=== PATIENT | male | born 1970 | race Caucasian/White ===

== ENCOUNTER 2022-06-27 10:55 | Emergency (ER) | payer OTHER, SELFPAY ==
[2022-06-27 11:01] VITALS: BP 161/117; PULSE 67; RESP 16; TEMP 36.4; O2SAT 98
--- NOTE | 2022-06-27 11:39 | ED.GENADULT ---
HPI - General Adult General Stated complaint: high blood pressure Source: patient Mode of arrival: ambulatory Limitations: no limitations History of Present Illness HPI narrative: Patient presents for evaluation of elevated blood pressure. He has history of hypertension for which he takes lisinopril 5 mg daily, Norvasc 10 mg daily, hydralazine 100 mg t.i.d. and Coreg 6.25 mg p.o. b.i.d.. His blood pressure normally is in the 120's/80's. This week his pressures have been in the 140s over 80s to 90s. Today he checked his blood pressure at home and had several readings of 170s/110's-130's. He denies any chest pain, shortness of breath, headache, lateralizing deficits. He denies any symptoms associated with elevated blood pressure. He has a history of a CVA approximately 1 year ago. He contacted his primary care provider yesterday regarding his elevated pressures and has an appointment scheduled for 07/09/2022. He notes some increase in stress as he returned to work in the past few weeks. Related Data Home Medications Medication Instructions Recorded Confirmed amlodipine 10 mg tablet 10 mg PO DAILY 06/27/22 06/27/22 atorvastatin 40 mg tablet 40 mg PO DAILY 06/27/22 06/27/22 carvedilol 6.25 mg tablet 6.25 mg PO BID 06/27/22 06/27/22 fluoxetine 20 mg capsule 20 mg PO DAILY 06/27/22 06/27/22 hydralazine 100 mg tablet 100 mg PO TID 06/27/22 06/27/22 Allergies Allergy/AdvReac Type Severity Reaction Status Date / Time No Known Allergies Allergy Unverified 03/08/17 18:32 Review of Systems Review of Systems: CONSTITUTIONAL: Denies fever, chills, or sweats. EYES: Denies visual changes, redness, or discharge. ENT: Denies rhinorrhea, congestion, sore throat, or otalgia. CARDIOVASCULAR: Denies chest pain, palpitations, or edema. RESPIRATORY: Denies cough or dyspnea. GASTROINTESTINAL: Denies abdominal pain, nausea, vomiting, or diarrhea. GENITOURINARY: Denies dysuria or hematuria. SKIN: Denies rash or itching. MUSCULOSKELETAL: Denies back pain, joint pain, or myalgia. NEUROLOGIC: Denies headache, numbness, dizziness, or weakness. PSYCHIATRIC: Denies anxiety or depression. [facility] Past Medical History Medical History CVA (cerebral vascular accident) Hyperlipidemia Hypertension Surgical History Surgical History No pertinent past surgical history Family History Family History (Reviewed 06/27/22 @ 11:44 by Carlton Salmon [facility], ) Mother Family history non-contributory Social History Social History (Reviewed 06/27/22 @ 11:44 by Carlton Salmon [facility], ) Substance use: never Gender identity (if verbalized by the patient): Male Sexual Orientation (if Verbalized by the Patient): Straight or Heterosexual Spiritual care concerns: No Exam Narrative: GENERAL: Well-appearing, well-nourished, and in no acute distress. HEAD: Normocephalic, atraumatic. EYES: PERRLA and EOMI. ENT: Nares clear, no rhinorrhea or epistaxis. Mucous membranes moist. Oropharynx without tonsillar hypertrophy exudate or other lesions. Bilateral TMs pearly maciel nonbulging NECK: Supple. No adenopathy or masses. No carotid bruits or JVD CHEST: Clear to auscultation. No respiratory distress. No wheezes rales or rhonchi HEART: Regular rate and rhythm. No murmur heard. Normal peripheral pulses. ABDOMEN: Soft, nontender, nondistended, normal active bowel sounds. EXTREMITIES: Normal range of motion. No edema. SKIN: Warm, dry, no rash. NEURO: No focal deficits. Alert and oriented x3. PSYCH: Normal mood and affect. Course Course Emergency Course: This is a 51-year-old male who presented for evaluation of elevated blood pressure readings. He is asymptomatic. He has an appointment scheduled for 07/09/2022, which she was advised to keep. Will increase his lisinopril from 5 mg daily to 20 mg daily. He should continue with
== END 2022-06-27 11:35 | disposition home or self-care (01) ==
PROVIDERS: Emergency Provider Nurse Practitioner; PCP Family Medicine
DX: I10 Essential (primary) hypertension (principal); E78.5 Hyperlipidemia, unspecified; Z86.73 Personal history of transient ischemic attack (TIA), and cerebral infarction without residual deficits
CPT/HCPCS: 99203; G0463

== ENCOUNTER 2022-09-13 11:51 | Emergency (ER) | payer OTHER, SELFPAY ==
[2022-09-13 12:01] VITALS: BP 118/73; PULSE 88; RESP 16; TEMP 37.1; O2SAT 96
--- NOTE | 2022-09-13 12:59 | ED.GENADULT ---
HPI - General Adult General Chief complaint: Upper Respiratory Infection Stated complaint: cold/flu Source: patient Mode of arrival: ambulatory Limitations: no limitations History of Present Illness HPI narrative: Patient presents for evaluation of sick symptoms for last 4 days. Symptoms include sinus congestion, mucopurulent discharge from the nares, sore throat and fever. His currently has similar symptoms. He denies any nausea or diarrhea. He has experienced some vomiting secondary to postnasal drainage. He also reports a cough without any shortness of breath or chest pain. He has not taken any medication to assist with the symptoms. He does not smoke. He has had COVID in the past. Related Data Home Medications Medication Instructions Recorded Confirmed amlodipine 10 mg tablet 10 mg PO DAILY 06/27/22 06/27/22 atorvastatin 40 mg tablet 40 mg PO DAILY 06/27/22 06/27/22 carvedilol 6.25 mg tablet 6.25 mg PO BID 06/27/22 06/27/22 fluoxetine 20 mg capsule 20 mg PO DAILY 06/27/22 06/27/22 hydralazine 100 mg tablet 100 mg PO TID 06/27/22 06/27/22 Allergies Allergy/AdvReac Type Severity Reaction Status Date / Time No Known Allergies Allergy Unverified 03/08/17 18:32 Review of Systems Review of Systems: CONSTITUTIONAL: Reports fever. Denies chills or sweats. EYES: Denies visual changes, redness, or discharge. ENT: Reports sinus congestion mucopurulent discharge from the nares. Reports sore throat. Denies otalgia. CARDIOVASCULAR: Denies chest pain, palpitations, or edema. RESPIRATORY: Reports cough. Denies shortness of breath. GASTROINTESTINAL: Denies abdominal pain, nausea, vomiting, or diarrhea. GENITOURINARY: Denies dysuria or hematuria. SKIN: Denies rash or itching. MUSCULOSKELETAL: Denies back pain, joint pain, or myalgia. NEUROLOGIC: Denies headache, numbness, dizziness, or weakness. PSYCHIATRIC: Denies anxiety or depression. [facility] Past Medical History Medical History CVA (cerebral vascular accident) Hyperlipidemia Hypertension Surgical History Surgical History No pertinent past surgical history Family History Family History Mother Family history non-contributory Social History Social History Substance use: never Living arrangements: with family Gender identity (if verbalized by the patient): Male Sexual Orientation (if Verbalized by the Patient): Straight or Heterosexual Spiritual care concerns: No Exam Narrative: GENERAL: Well-appearing, well-nourished, and in no acute distress. HEAD: Normocephalic, atraumatic. EYES: PERRLA and EOMI. ENT: Nares clear, no rhinorrhea or epistaxis. Mucous membranes moist. Oropharynx without tonsillar hypertrophy exudate or other lesions. Right tympanic membrane erythema. NECK: Supple. No adenopathy or masses. No carotid bruits or JVD CHEST: Clear to auscultation. No respiratory distress. No wheezes rales or rhonchi HEART: Regular rate and rhythm. No murmur heard. Normal peripheral pulses. ABDOMEN: Soft, nontender, nondistended, normal active bowel sounds. EXTREMITIES: Normal range of motion. No edema. SKIN: Warm, dry, no rash. NEURO: No focal deficits. Alert and oriented x3. PSYCH: Normal mood and affect. Course Course Emergency Course: This is a 51-year-old male who presented for evaluation of sick symptoms. I did offer to check a chest x-ray, which she declined. He does have evidence of bacterial sinusitis based on nature of discharge and fever. Will discharge with Augmentin. Follow up with primary provider. Go to the ER for worsening symptoms. Patient in agreement with plan of care. Level of Care: Express Care Visit Vital Signs Vital signs: Vital Signs Temperature 37.1 C 09/13/22 12:0
== END 2022-09-13 13:07 | disposition home or self-care (01) ==
PROVIDERS: Emergency Provider Nurse Practitioner; PCP Family Medicine
DX: J32.9 Chronic sinusitis, unspecified (principal); B96.89 Other specified bacterial agents as the cause of diseases classified elsewhere; E78.5 Hyperlipidemia, unspecified; I10 Essential (primary) hypertension; Z86.73 Personal history of transient ischemic attack (TIA), and cerebral infarction without residual deficits
CPT/HCPCS: 99213; G0463

== ENCOUNTER 2023-04-22 15:11 | Emergency (ER) | payer BC, SELFPAY ==
[2023-04-22 15:20] VITALS: BP 130/85; PULSE 79; RESP 18; TEMP 36.7; O2SAT 98
--- NOTE | 2023-04-22 15:37 | ED.URI ---
HPI - URI/Sore Throat General Chief Complaint: Upper Respiratory Infection Stated Complaint: Sore Throat Time Seen by Provider: 04/22/23 15:30 Source: patient Mode of arrival: ambulatory Limitations: no limitations History of Present Illness HPI Narrative: Steven is a 52-year-old male patient presenting to the clinic today with complaints of sore throat and sinus congestion since last night. He reports he thinks he may have a sinus infection. Is having a lot of drainage going of the back was throat. MD elicited complaint: sore throat and nasal congestion Related Data Home Medications Medication Instructions Recorded Confirmed amlodipine 10 mg tablet 10 mg PO DAILY 06/27/22 04/22/23 atorvastatin 40 mg tablet 40 mg PO DAILY 06/27/22 04/22/23 carvedilol 6.25 mg tablet 6.25 mg PO BID 06/27/22 04/22/23 fluoxetine 20 mg capsule 20 mg PO DAILY 06/27/22 04/22/23 hydralazine 100 mg tablet 100 mg PO TID 06/27/22 04/22/23 lisinopril 5 mg tablet 5 mg PO DAILY 04/22/23 04/22/23 Allergies Allergy/AdvReac Type Severity Reaction Status Date / Time No Known Allergies Allergy Unverified 04/22/23 15:31 Review of Systems Review of Systems: Pertinent positives per HPI. Patient denies any fever, chills, rash, headache, visual changes, dizziness, shortness of breath, chest pain, palpitations, nausea, vomiting, diarrhea, constipation, abdominal pain, or any urinary issues. PMFSH Past Medical History Medical History CVA (cerebral vascular accident) Hyperlipidemia Hypertension Surgical History Surgical History No pertinent past surgical history Family History Family History Mother Family history non-contributory Social History Social History Substance use: never Living arrangements: with family Gender identity (if verbalized by the patient): Male Sexual Orientation (if Verbalized by the Patient): Straight or Heterosexual Spiritual care concerns: No Comments At the time of my signature, I reviewed and agree with the nursing past medical, surgical, social, and family history. There is no relevant family history pertinent to the patient complaint. Exam Narrative: General: Well-developed, well nourished, in no apparent distress Head: Normocephalic, atraumatic Eyes: Pupils equally round and reactive to light bilaterally, EOM intact, sclera and conjunctive clear, no discharge, lids normal Ears: TMs intact and clear, ear canals clear, no drainage, grossly hearing normal. Nose: Nares patent, no discharge, no inflammation, no sinus tenderness. Mouth: Oral pharynx without lesions or masses, good dentition, MMM. Neck: Supple, trachea midline, no enlargement of anterior or posterior cervical nodes, no thyroid masses or goiter palpable. Cardio: Regular rate and rhythm, s1 and s2 normal, no murmur appreciated. Resp: Clear to auscultation bilaterally, no rhonchi, rales, wheezing or rubs Course Course Emergency Course: Portions of this record may have been created with voice recognition software. Level of Care: Express Care Visit Vital Signs Vital signs: Vital signs reviewed MDM - URI/Sore Throat MDM Narrative Medical decision making narrative: At the time of visit patient is resting comfortably on the exam table. COVID and strep test were performed and negative in the clinic today. I suspect patient has URI pharyngitis/viral syndrome. Supportive measures were discussed with the patient he voiced understanding discharge instructions agrees to treatment plan. Will send in prescription for some prednisone. Differential Diagnosis Differential diagnosis: Likely upper respiratory infection, otitis media, sinusitis, viral infection, bronchitis, influenza, pharyngitis and other (COV
== END 2023-04-22 16:00 | disposition home or self-care (01) ==
PROVIDERS: Emergency Provider Nurse Practitioner Family; PCP Family Medicine
DX: J06.9 Acute upper respiratory infection, unspecified (principal); R09.82 Postnasal drip; E78.5 Hyperlipidemia, unspecified; I10 Essential (primary) hypertension; Z86.73 Personal history of transient ischemic attack (TIA), and cerebral infarction without residual deficits; Z20.822 Contact with and (suspected) exposure to COVID-19; Z79.899 Other long term (current) drug therapy
CPT/HCPCS: 87081; 87426; 87880; 99213; C9803; G0463

== ENCOUNTER 2023-11-02 17:00 | Emergency (ER) | payer SELFPAY ==
[2023-11-02 17:08] VITALS: BP 128/73; PULSE 73; RESP 20; TEMP 36.9; O2SAT 95
--- NOTE | 2023-11-02 19:03 | ED.WOUNDLAC ---
HPI - Wound/Laceration General Chief Complaint: Wound/Laceration Stated Complaint: Right Thumb Cut Time Seen by Provider: 11/02/23 17:47 Source: patient, RN notes reviewed and old records reviewed Mode of arrival: ambulatory Limitations: no limitations History of Present Illness HPI narrative: 52-year-old male to Express Care for laceration to right palmar thumb. Patient reports using a utility knife to sharpen a pencil when his hand slipped, causing him to slice into his thumb. Patient states Tdap is up-to-date. Bleeding controlled. Patient denies pertinent medical history, allergies, numbness, tingling. Patient endorsing pain 10. Patient calm and cooperative in exam room. No acute distress. Related Data Home Medications Medication Instructions Recorded Confirmed amlodipine 10 mg tablet 10 mg PO DAILY 06/27/22 11/02/23 atorvastatin 40 mg tablet 40 mg PO DAILY 06/27/22 11/02/23 carvedilol 6.25 mg tablet 6.25 mg PO BID 06/27/22 11/02/23 fluoxetine 20 mg capsule 20 mg PO DAILY 06/27/22 11/02/23 hydralazine 100 mg tablet 100 mg PO TID 06/27/22 11/02/23 lisinopril 5 mg tablet 5 mg PO DAILY 04/22/23 11/02/23 Allergies Allergy/AdvReac Type Severity Reaction Status Date / Time No Known Allergies Allergy Unverified 04/22/23 15:31 Review of Systems Review of Systems: All systems reviewed & are unremarkable except as noted in HPI and below Constitutional: Constitutional: Reports no additional constitutional complaints Eyes: Eyes: Reports no additional eye complaints ENT: Reports system reviewed and no additional complaints, except as documented Cardiovascular: Cardiovascular: Reports no additional cardiovascular complaints, Denies chest pain and Denies dyspnea Respiratory: Respiratory: Reports no additional respiratory complaints, Denies cough and Denies dyspnea Musculoskeletal: Musculoskeletal: Reports no additional musculoskeletal complaints Integumentary/Breasts: Skin/Breast: Reports wounds (4 cm laceration to right palmar thumb. ) Neurologic: Reports system reviewed and no additional complaints, except as documented Psychiatric: Psychiatric: Reports no additional psychiatric complaints PMFSH Past Medical History Medical History CVA (cerebral vascular accident) Hyperlipidemia Hypertension Surgical History Surgical History No pertinent past surgical history Family History Family History Mother Family history non-contributory Social History Social History Substance use: never Living arrangements: with family Gender identity (if verbalized by the patient): Male Sexual Orientation (if Verbalized by the Patient): Straight or Heterosexual Spiritual care concerns: No Comments At the time of my signature, I reviewed and agree with the nursing past medical, surgical, social, and family history. There is no relevant family history pertinent to the patient complaint. Exam Const: General: cooperative, healthy appearing, no acute distress, alert, uncomfortable and well nourished Nutritional Appearance: well nourished Orientation/consciousness: patient oriented x3 Limitations: no limitations HENMT: Head: normal to inspection Ears: external ears normal Face/Nose/Sinus: Normal external nose present, Normal nares present, normal facial exam, No erythema and No edema Face and sinus: normal facial exam, no erythema and no edema Mouth: Yes Normal oral and palatal mucosa present Eyes: General: appearance normal, both eyes and all related structures Neck: Neck: normal visual inspection, full ROM and no meningeal signs Lymphatic: no lymphadenopathy noted and no lymphedema noted Chest: Chest palpation & inspection: normal inspection of the chest Resp: Ef
== END 2023-11-02 18:40 | disposition home or self-care (01) ==
PROVIDERS: Emergency Provider Nurse Practitioner Family; PCP Family Medicine
DX: S61.011A Laceration without foreign body of right thumb without damage to nail, initial encounter (principal); W26.0XXA Contact with knife, initial encounter; E78.5 Hyperlipidemia, unspecified; I10 Essential (primary) hypertension; Z86.73 Personal history of transient ischemic attack (TIA), and cerebral infarction without residual deficits
CPT/HCPCS: 12002; 99213; G0463

== ENCOUNTER 2024-01-07 08:26 | Emergency (ER) | payer SELFPAY ==
--- NOTE | ~2024-01-07 | XR_ITS ---
XR knee LT min 4V 01/07/2024 08:48 Indication: Left knee pain after fall Procedure: 4 views left knee Comparison: No prior studies for comparison. Findings: No fracture, subluxation or dislocation. There is an incompletely fused tibial tuberosity. No significant joint effusion. No foreign bodies. Impression: 1: No acute fracture. Reviewed, dictated and finalized at location B. Impression: 1: No acute fracture.
[2024-01-07 08:30] VITALS: BP 124/89; PULSE 70; RESP 18; TEMP 36.5; O2SAT 99
--- NOTE | 2024-01-07 08:30 | ED.LOWEXIN ---
HPI - Extremity Injury (Lower) General Chief Complaint: Extremity Injury, Lower Stated Complaint: left knee injury Time Seen by Provider: 01/07/24 08:30 Source: patient, RN notes reviewed and old records reviewed Mode of arrival: ambulatory Limitations: no limitations History of Present Illness HPI Narrative: 53-year-old male to Express Care for complaint left knee pain status post fall yesterday afternoon. 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 Patient denies feeling or hearing a pop during incident. patient denies pertinent medical history, allergies, weakness, numbness, tingling. Patient reports 0/10 pain when at rest. Patient states pain is 7/10 with activity. Patient has attempted to treat at home with ice and heat with some relief. Patient able to ambulate with slow but steady gait. Patient in no acute distress. Related Data Home Medications Medication Instructions Recorded Confirmed amlodipine 10 mg tablet 10 mg PO DAILY 06/27/22 01/07/24 atorvastatin 40 mg tablet 40 mg PO DAILY 06/27/22 01/07/24 carvedilol 6.25 mg tablet 6.25 mg PO BID 06/27/22 01/07/24 fluoxetine 20 mg capsule 20 mg PO DAILY 06/27/22 01/07/24 hydralazine 100 mg tablet 100 mg PO TID 06/27/22 01/07/24 lisinopril 5 mg tablet 5 mg PO DAILY 04/22/23 01/07/24 Allergies Allergy/AdvReac Type Severity Reaction Status Date / Time No Known Allergies Allergy Unverified 01/07/24 08:40 Review of Systems Review of Systems: All systems reviewed & are unremarkable except as noted in HPI and below Constitutional: Constitutional: Reports no additional constitutional complaints Eyes: Eyes: Reports no additional eye complaints ENT: Reports system reviewed and no additional complaints, except as documented Cardiovascular: Cardiovascular: Reports no additional cardiovascular complaints, Denies chest pain and Denies dyspnea Respiratory: Respiratory: Reports no additional respiratory complaints, Denies cough and Denies dyspnea Musculoskeletal: Musculoskeletal: Reports as per HPI, Reports abnormal gait, Denies deformity, Reports arthralgias (left knee with activity), Denies joint swelling, Denies limited range of motion, Denies numbness and Denies tingling Neurologic: Reports system reviewed and no additional complaints, except as documented Psychiatric: Psychiatric: Reports no additional psychiatric complaints PMFSH Past Medical History Medical History CVA (cerebral vascular accident) Hyperlipidemia Hypertension Surgical History Surgical History No pertinent past surgical history Family History Family History Mother Family history non-contributory Social History Social History Substance use: never Living arrangements: with family Gender identity (if verbalized by the patient): Male Sexual Orientation (if Verbalized by the Patient): Straight or Heterosexual Spiritual care concerns: No Comments At the time of my signature, I reviewed and agree with the nursing past medical, surgical, social, and family history. There is no relevant family history pertinent to the patient complaint. Exam Const: General: cooperative, healthy appearing, no acute distress, alert, uncomfortable and well nourished Nutritional Appearance: well nourished Orientation/consciousness: patient oriented x3 Limitations: no limitations HENMT: Head: normal to inspection Ears: external ears normal Face/Nose/Sinus: Normal external nose present, Normal nares present, normal facial exam, No erythema and No edema Face and sinus: normal facial exam, no erythema and no edema Mouth: Yes Normal oral and palatal mucosa present Eyes: Genera
== END 2024-01-07 09:18 | disposition home or self-care (01) ==
PROVIDERS: Emergency Provider Nurse Practitioner Family; PCP Family Medicine
DX: S83.92XA Sprain of unspecified site of left knee, initial encounter (principal); W19.XXXA Unspecified fall, initial encounter; E78.5 Hyperlipidemia, unspecified; I10 Essential (primary) hypertension; Z86.73 Personal history of transient ischemic attack (TIA), and cerebral infarction without residual deficits
CPT/HCPCS: 73564; 99213; G0463

== ENCOUNTER 2025-02-20 10:58 | Emergency (ER) | payer SELFPAY ==
[2025-02-20 11:05] VITALS: BP 150/87; PULSE 74; RESP 20; TEMP 36.8; O2SAT 97
--- NOTE | 2025-02-20 11:30 | ED.GENADULT ---
HPI - General Adult General Chief complaint: Unspecified Stated complaint: acid reflux attack last night Time Seen by Provider: 02/20/25 11:15 Source: patient Mode of arrival: ambulatory Limitations: no limitations History of Present Illness HPI narrative: Steven is a 54-year-old morbidly obese male patient presenting to the clinic today with complaints of acid reflux symptoms. He reports last night he was laying flat when he developed burning into his chest an acid going into his throat. States that the pain was very bad last night where he had to stay upright and he was taking some Tums. States that the pain is still a 5/10 currently. This has caused him to have a cough. Denies any URI symptoms. Denies any shortness of breath. Takes a [id number] burn relief pill from [employer] but does not know the name of the medication. No history of acid reflux however he does have history of hypertension, hyperlipidemia, and depression. Related Data Home Medications ?Medication ?Instructions ?Recorded ?Confirmed ?Last Taken ?Type amlodipine 10 mg tablet 10 mg PO DAILY 06/27/22 01/07/24 Unknown History atorvastatin 40 mg tablet 40 mg PO DAILY 06/27/22 01/07/24 Unknown History carvedilol 6.25 mg tablet 6.25 mg PO BID 06/27/22 01/07/24 Unknown History fluoxetine 20 mg capsule 20 mg PO DAILY 06/27/22 01/07/24 Unknown History hydralazine 100 mg tablet 100 mg PO TID 06/27/22 01/07/24 Unknown History lisinopril 5 mg tablet 5 mg PO DAILY 04/22/23 01/07/24 Unknown History Allergies Allergy/AdvReac Type Severity Reaction Status Date / Time No Known Allergies Allergy Unverified 02/20/25 11:13 [facility] Past Medical History Medical History CVA (cerebral vascular accident) Hyperlipidemia Hypertension Surgical History Surgical History No pertinent past surgical history Family History Family History Mother Family history non-contributory Social History Social History Substance use: never Living arrangements: with family Gender identity (if verbalized by the patient): Male Sexual Orientation (if Verbalized by the Patient): Straight or Heterosexual Spiritual care concerns: No Comments At the time of my signature, I reviewed and agree with the nursing past medical, surgical, social, and family history. There is no relevant family history pertinent to the patient complaint. Exam Narrative: General: Well-developed, morbidly obese, in no apparent distress Head: Normocephalic, atraumatic. Cardio: Regular rate and rhythm, s1 and s2 normal, no murmur appreciated. Resp: Clear to auscultation bilaterally, no rhonchi, rales, wheezing or rubs. Abdomen: Soft, pliable, bowel sounds present in all quadrants, epigastric tender to palpation, no organomegly, no CVAT tenderness. Extremities: No deformity, no edema, no cyanosis, capillary refill less than 2 seconds, peripheral pulses palpable and strong. Integumentary: [place], warm, and dry, intact without lesion, no rashes. Course Course Emergency Course: Portions of this record may have been created with voice recognition software. Level of Care: Express Care Visit Vital Signs Vital signs: Vital Signs Temperature 36.8 C 02/20/25 11:05 Pulse Rate 74 02/20/25 11:05 Respiratory Rate 20 02/20/25 11:05 Blood Pressure 150/87 H 02/20/25 11:05 Pulse Oximetry 97 02/20/25 11:05 Oxygen Delivery Room Air 02/20/25 11:05 Temperature 36.8 C 02/20/25 11:05 Pulse Rate 74 02/20/25 11:05 Respiratory Rate 20 02/20/25 11:05 Blood Pressure 150/87 H 02/20/25 11:05 Pulse Oximetry 97 02/20/25 11:05 Oxygen Delivery Room Air 02/20/25 11:05 Vital signs reviewed Medical Decision Making MDM Narrative Medical decision making narrative: At the time of visit patient is resting comfortably on the exam table. Patient appears to be nontoxic. Complaints of acid reflux symptoms. He reports last night he was laying flat when he developed burning into his chest an acid going into his throat. States that the pain was very bad last night where he had to stay upright and he was taking some Tums. States that the pain is still a 5/10 currently. This has caused him to have a cough. Denies any URI symptoms. Denies any shortness of breath. Takes a [id number] burn relief pill from [employer] but does not know the name of the medication. No history of acid reflux however he does have history of hypertension, hyperlipidemia, and depression. On exam patient has epigastric tenderness to palpation. EKG and partial GI cocktail ordered. Medications: Maalox 30 mL p.o. and viscous lidocaine 15 mL p.o. given in the clinic today. This improved patient's symptoms in the clinic today. EKG: EKG shows sinus rhythm with possible old anterior myocardial infarction and inferior myocardial infarction due to Q-waves and ST TT abnormality in lead 2 and AVF. No acute ST elevation or depression noted. Ventricle rates 66 beats per minute. Plan: I suspect patient has GERD. Prescription for omeprazole 40 mg daily was sent to the pharmacy. Patient is making a follow-up appointment with his PCP zul[facility]. Copy of the EKG and EKG report was given to the patient to share with his primary care provider. Supportive measures were discussed with the patient and they voiced understanding discharge instructions and agrees to treatment plan. Return precautions reviewed Differential Diagnosis Differential Diagnosis: GERD, nonspecific chest pain, non STEMI, STEMI, pleurisy, hiatal hernia Vital Signs Vital Signs: Vital Signs Temperature 36.8 C 02/20/25 11:05 Pulse Rate 74 02/20/25 11:05 Respiratory Rate 20 02/20/25 11:05 Blood Pressure 150/87 H 02/20/25 11:05 Pulse Oximetry 97 02/20/25 11:05 Oxygen Delivery Room Air 02/20/25 11:05 Temperature 36.8 C 02/20/25 11:05 Pulse Rate 74 02/20/25 11:05 Respiratory Rate 20 02/20/25 11:05 Blood Pressure 150/87 H 02/20/25 11:05 Pulse Oximetry 97 02/20/25 11:05 Oxygen Delivery Room Air 02/20/25 11:05 ECG Data EKG #1: Attestation: I personally reviewed and interpreted this ECG as follows: ECG completion date: 02/20/25 ECG completion time: 11:39 Interpretation: EKG shows sinus rhythm with possible old anterior myocardial infarction and inferior myocardial infarction due to Q-waves and ST TT abnormality in lead 2 and AVF. No acute ST elevation or depression noted. Ventricle rates 66 beats per minute, DC interval is 108 the 8 milliseconds, QRS durations 95 milliseconds, QT-QTC is 400-413 milliseconds, P-R-T axis is 2 -9 Discharge Plan Discharge Clinical Impression: GERD (gastroesophageal reflux disease) Patient Disposition: Home Condition: Stable Instructions: Antibiotic Form, Diet for Stomach Ulcers and Gastritis (ED), GERD (Gastroesophageal Reflux Disease) (ED) Additional Instructions: EKG shows nothing acute clinic today Maalox 30 mL and viscous lidocaine 15 mL was given in the clinic today Take omeprazole as prescribed Increase fluids and stay well hydrated Avoid eating spicy or fatty foods, chocolate, or drinking caffeine. Avoid foods that cause you to feel bloated. Stop smoking Lose weight/exercise Stay upright for at least 30 minutes after eating. May use tums for immediate relief Follow up with your PCP in 3-5 days if symptoms persist. Patient Language: Azeri Prescriptions: New omeprazole 40 mg capsule,delayed release(DR/EC) 40 mg PO DAILY 30 Days Qty: 30 0RF No Action atorvastatin 40 mg tablet 40 mg PO DAILY carvedilol 6.25 mg tablet 6.25 mg PO BID amlodipine 10 mg tablet 10 mg PO DAILY hydralazine 100 mg tablet 100 mg PO TID fluoxetine 20 mg capsule 20 mg PO DAILY lisinopril 5 mg tablet 5 mg PO DAILY Follow-up/Referrals: Mike,Serge Pan MD [Primary Care Provider] Stand Alone Forms: Work/School Release IP Time of Disposition: 11:59 Quality NIHSS Nursing Documentation ED NIHSS nursing documentation: reviewed/agree
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
--- OUTSIDE RECORDS SUMMARY | 2025-02-20 11:33 | XMS_ITS | Encounter Summary ---
Author Organization [facility] Address [address] [place] [address] Care Team Providers Care Translator Name Role Phone Serge Mckeon MD Primary Care Provider + Reason for Visit * Reason Onset Date Comments Skin rash 05/21/2021 Spoke w/Rosa at [facility] ex. Encounter Details Date Type Department Care Team (Late st Contact Info) Description 05/21/2021 Telephone [facility] Admitting [address] [place] [address] [place] [address] [place] [address] Skin rash (Spoke w/Rosa at Dr. Raygoza'isrrael ex.) Social History Tobacco Use Types Packs/Day Years Used Date Smoking Tobacco: Every Day Alcohol Use Standard Drinks/Week Comments Not Currently 0 (1 standard drink = 0.6 oz pur e alcohol) Sex and Gender Information Value Date Recorded Sex Assigned at Not on file Legal Sex Male 10:14 PM CDT Gender Identity Not on file Sexual Orientation Not on file COVID-19 Exposure Response Date Recorded In the last month, have you been in contact with someone who was confirmed or suspected to have Coronavirus / COVID-19? 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
--- OUTSIDE RECORDS SUMMARY | 2025-02-20 11:33 | XMS_ITS | Clinical Summary ---
Author Organization [facility] Address [address] [place] [address] Phone Care Team Providers Care Distance Learning Program Coordinator Name Role Phone Serge Mckeon MD Primary Care Provider [phone] Allergies No known active allergies Medications amLODIPine (NORVASC) 5 MG TabletIndicatio ns:Hypertension Take 5 mg by mouth. Indications: High Blood Pressure Active Ranitidine HCl 150 MG CapsuleIndicati ons:heartburn Take 150 mg by mouth daily. Indications: heartburn Active HYDROcodone-peter taminophen (NORCO) 5-325 MG Tablet Take 1-2 Tabs by mouth every 4 hours as needed for Pain. 20 Tab 0 5 Active HYDROcodone-peter taminophen (NORCO) 5-325 MG TabletIndicatio ns:Closed fracture of one rib of right side, initial encounter Take 1-2 Tablets by mouth every 4 hours as needed for Moderate or more severe pain. 20 Tablet 4 Active Social History Tobacco Use Types Packs/Day Years Used Date Smoking Tobacco: Former Cigarettes Tobacco Cessation:Counseling Given: Not Answered Alcohol Use Standard Drinks/Week Comments Never 0 (1 standard drink = 0.6 oz pur e alcohol) Sex and Gender Information Value Date Recorded Sex Assigned at Not on file Legal Sex Male 9:25 PM CDT Gender Identity Not on file Sexual Orientation Not on file Last Filed Vital Signs Vital Sign Reading Time Taken Comments Blood Pressure 121/64 04/17/2024 1:04 AM CDT Pulse 104 04/17/2024 1:04 AM CDT Temperature 37.4 C (99.4 F) 04/16/2024 9:34 PM CDT Respiratory Rate 21 04/17/2024 1:04 AM CDT Oxygen Saturation 98% 04/17/2024 1:04 AM CDT Inhaled Oxygen Concentration - - Weight 115.7 kg (255 lb) 04/16/2024 9:34 PM CDT Height 175.3 cm (5' 9) 04/16/2024 9:34 PM CDT Body Mass Index 37.66 04/16/2024 9:34 PM CDT Plan of Treatment Health Maintenance Due Date Last Done Comments Hepatitis C Virus (HCV) Screening 1972 TdaP Immunization 1972 Hepatitis B Immunization (1 of 3 - 19+ 3-dose series) 12/28/1991 Cologuard 2017 Colonoscopy 2017 Colorectal Cancer Screening 2017 Immunochemical Fecal Occult Blood 2017 Pneumococcal Immunization (5 0+ years) (1 of 1 - PCV) 2022 Zoster Immunization (1 of 2) 2022 Influenza Immunization (#1) 2025 SARS-COV-2 Immunization (1 - season) 2025 Respiratory Syncytial Virus (RSV) Immunization (Adult) (1 - 1-dose 75+ series) 12/28/2047 Human Papillomavirus (HPV) Immunization Aged Out No longer eligible b ased on patient's age to complete this topic Meningococcal Immunization (ACWY) Aged Out No longer eligible based on patient's age to complete this topic Rotavirus Immunization Aged Out No lo nger eligible based on patient's age to complete this topic Care Teams Distance Learning Program Coordinator Relationship Specialty Start Date End Date Serge Mckeon MD [address] [place] [address] PCP - General Family Medicine 05/21/15
--- NOTE | 2025-02-20 11:34 | ECG_ITS ---
Test Date: 2025-02-20 11:39:31 Measurements Intervals Neal Rate: 66 P: 2 ME: 188 QRS: -31 QRSD: 95 T: -9 QT: 400 QTc: 420 Interpretive Statements SINUS RHYTHM POSSIBLE ANTERIOR MYOCARDIAL INFARCTION [30 ms Q WAVE IN V3/V4, OR R < 0.2 mV IN V4], PROBABLY OLD INFERIOR MYOCARDIAL INFARCTION [40+ ms Q WAVE AND/OR ST/T ABNORMALITY IN II/aVF], OF INDETERMINATE AGE WARNING: DATA QUALITY MAY AFFECT INTERPRETATION No previous ECG available for comparison Electronically Signed On 02-20-2025 11:51:13 CDT by Mitul Peoples M.D.
--- OUTSIDE RECORDS SUMMARY | 2025-02-20 11:34 | XMS_ITS | Clinical Summary ---
Author Organization [facility] Address [address] [place] [address] Phone Care Team Providers Care Management Development Specialist Name Role Phone Serge Mckeon MD Primary Care Provider + Allergies No known active allergies Medications FLUoxetine (PROzac) 20 mg capsule Take 1 Capsule (20 mg) by mouth daily. 30 Capsule 05/23/2021 2:46 PM FEATHER STITCHER 1 Active lisinopriL (PRINIVIL) 5 mg tablet Take 1 Tablet (5 mg) by mouth daily. 30 Tablet 05/23/2021 2:46 PM FEATHER STITCHER 1 Active triamcinolone acetonide (KENALOG) 0.1 % Cream Apply topically to affected area(s) 2 times daily. 45 Gram 05/23/2021 2:46 PM FEATHER STITCHER 1 Active amLODIPine (NORVASC) 10 mg tablet amlodipine 10 mg tablet Active aspirin (ECOTRIN EC) 81 mg Tablet, Delayed Release (E.C.) every 24 hours. Acti ve atorvastatin (LIPITOR) 40 mg tablet Take 40 mg by mouth daily at bedtime. 2 Active carvediloL (COREG) 6.25 mg tablet TAKE 1 TABLET TWICE A DAY BY ORAL ROUTE FOR 90 DAYS. 2 Active ergocalciferol (VITAMIN D2) 50,000 unit capsule TAKE 1 CAPSULE EVERY WEEK BY ORAL ROUTE. 2 Active famotidine (PEPCID) 20 mg tablet famotidine 20 mg tablet Active fluticasone propionate (FLONASE) 50 mcg/spray [place], Suspension nasal inhaler SPRAY 1 SPRAY BY INTRANASAL ROUTE EVERY DAY 2 Active hydrALAZINE (APRESOLINE) 100 mg Tablet tablet TAKE 1 TABLET BY MOUTH THREE TIMES A DAY FOR 90 DAYS 2 Active loratadine (CLARITIN) 10 mg tablet every 24 hours. Acti ve Active Problems Problem Noted Date Diagnosed Date Gastroesophageal reflux disease 09/24/2021 Essential hypertension 09/24/2021 Obesity 09/24/2021 Left hemiparesis 05/19/2021 Cerebrovascular accident 05/19/2021 Cerebrovascular accident (CVA) Hypertensive urgency RADHA (obstructive sleep apnea) YAQUELIN (acute kidney injury) Hypokalemia Acute left hemiparesis Stroke-like symptoms Obesity (BMI 35.0-39.9 without comorbidity) Former smoker At risk for obstructive sleep apnea HTN (hypertension), benign Prediabetes Severe obesity (BMI 35.0-39.9) with comorbidity Social History Tobacco Use Types Packs/Day Years Used Date Smoking Tobacco: Former Cigarettes Q uit: 2009 Smokeless Tobacco: Former Alcohol Use Standard Drinks/Week Comments Not Currently 0 (1 standard drink = 0.6 oz pur e alcohol) Sex and Gender Information Value Date Recorded Sex Assigned at Not on file Legal Sex Male 10:14 PM CDT Gender Identity Not on file Sexual Orientation Not on file Last Filed Vital Signs Vital Sign Reading Time Taken Comments Blood Pressure 122/72 08/26/2022 11:09 AM FEATHER STITCHER Pulse 76 08/26/2022 11:09 AM FEATHER STITCHER Temperature 36.6 C (97.9 F) 05/23/2021 8:00 AM FEATHER STITCHER Respiratory Rate 22 05/23/2021 8:00 AM FEATHER STITCHER Oxygen Saturation 97% 05/23/2021 8:00 AM FEATHER STITCHER Inhaled Oxygen Concentration - - Weight 118.8 kg (262 lb) 08/26/2022 11:09 AM FEATHER STITCHER Height 175.3 cm (5' 9) 08/26/2022 11:09 AM FEATHER STITCHER Body Mass Index 38.69 08/26/2022 11:09 AM FEATHER STITCHER Plan of Treatment Health Maintenance Due Date Last Done Comments DTAP/TDAP/TD VACCINES (1 - Tdap) 12/28/1991 HEPATITIS B VACCINES (1 of 3 - 19+ 3-dose series) 02/1992 COLORECTAL SCREENING 2017 Colorectal Cancer Screening 2017 FIT-DNA Q 3 years 2017 FIT/FOBT Q 1 year 2017 Flex Sig/CT Colonography Q 5 years 2017 ZOSTER VACCINE (1 of 2) 2022 Pre-Diabetes and Diabetes Screening 05/09/202405/09 INFLUENZA VACCINE (#1) 2025 Procedures Procedure Name Priority Date/Time Associated Diagnosis Comments HEMOGLOBIN A1C Stat 05/09/2021 3:22 PM FEATHER STITCHER from Last 3 Months or Most Recently Relevant to Health Maintenance Results * (ABNORMAL) HEMOGLOBIN A1C (05/09/2021 3:22 PM FEATHER STITCHER) HEMOGLOBIN A1C 6.2(H) <=5.6 % 05/09/2021 5:59 PM FEATHER STITCHER [facility] EST. AVG GLUCOSE, A1C 131 mg/dL 05/09/2021 5:59 PM FEATHER STITCHER [facility] [employer] [facility] Blood Venipuncture / Unknown 05/09/2021 3:22 PM FEATHER STITCHER 05/09/2021 3:40 PM FEATHER STITCHER Narrative [facility] [employer] [facility] - 05/09/2021 5:59 PM FEATHER STITCHER HGB A1C INTERPRETATION NORMAL: <5.7% PRE-DIABETES: 5.7 - 6.4% DIABETES: 6.5% OR GREATER Shaun PACHECO CHEMISTRY ORDERABLES Final Resul t [facility] [employer] [facility] CLIA# [id number] [place] [address] from Last 3 Months or Most Recently Relevant to Health Maintenance Insurance [employer] [place] [employer] Member Subscriber Plan / Payer (Ef fective 2021-Present) Name:Steven Espinosa Relation to Subscriber:Self Name:Steven Espinosa Subscriber ID:Not on file Payer ID:Not on file Group ID:[id number] Type:RX Commercial Address: [address] [facility] [employer] (INTERNAL) [facility] Advance Directives For more information, please contact: [phone] * Full Code (Latest Code Status on File) Date Activated Date Inactivated Comments 05/14/2021 8:01 PM 05/23/2021 5:00 PM * Full Code Date Activated Date Inactivated Comments 05/09/2021 4:51 PM 05/14/2021 7:15 PM Care Teams Management Development Specialist Relationship Specialty Start Date End Date Serge Mckeon MD [address] [place] [id number] PCP - General Family Practice 05/09/21
[2025-02-20] MEDS: MAG HYDROX/AL HYDROX/SIMETH 30 ML UDC PO (11:45)
[2025-02-20] MEDS: LIDOCAINE 2% VISC SOLN 15 ML UDC PO (11:45)
== END 2025-02-20 12:06 | disposition home or self-care (01) ==
PROVIDERS: Emergency Provider Nurse Practitioner Family; PCP Family Medicine
DX: K21.9 Gastro-esophageal reflux disease without esophagitis (principal); I10 Essential (primary) hypertension; E78.5 Hyperlipidemia, unspecified; Z86.73 Personal history of transient ischemic attack (TIA), and cerebral infarction without residual deficits; F32.A Depression, unspecified
CPT/HCPCS: 93005; 99213; A9270; G0463